=== PATIENT | female | born 1990 | race Two or more races ===

== ENCOUNTER 2017-06-18 04:28 | Emergency (ER) | payer BC ==
[~2017-06-18] VITALS: Ht 167.6 cm; Wt 62.6 kg
[2017-06-18 04:37] VITALS: Ht 167.6 cm; Wt 62.6 kg
[2017-06-18 05:43] VITALS: BP 122/84
== END 2017-06-18 05:43 | disposition home or self-care (01) ==
LOC: ED 04:28
DX: K04.7 Periapical abscess without sinus (principal)
CPT/HCPCS: J1170; J1885; Q0162